=== PATIENT | female | born 1980 | race Caucasian/White ===

== ENCOUNTER → 2020-03-23 14:36 | Outpatient (CLI) | payer OTHER, SELFPAY ==
--- NOTE | 2020-03-23 14:38 | DI.RAD.S_ITS ---
PROCEDURE: XR LUMBAR SPINE MIN 4V INDICATIONS: low back pain TECHNIQUE: 5 views of the lumbar spine were acquired. COMPARISON: Outside Facility, RG, XR L-SPINE 2-3V, 01/04/2018, 9:07. [facility], MR, MR LUMBAR SPINE WITHOUT CONTRAST, 01/11/2019, 14:03. FINDINGS: Bones: 5 nonrib-bearing vertebrae are present. Very subtle scoliosis. No vertebral body compression fractures. No suspicious bony lesions. Minimal narrowing of the L5-S1 neural foramen, unchanged compared to 2018. Soft tissues: Overlying bowel gas pattern is normal. No suspicious soft tissue calcifications. IUD in the pelvis. Oblique images: No pars defects. IMPRESSION: Minimal narrowing of the L5-S1 neural foramen, unchanged. Dictated by: Sanket Lozoya M.D. on 03/23/2020 at 16:10 Approved by: Sanket Lozoya M.D. on 03/23/2020 at 16:13
== END ==
PROVIDERS: PCP Family Medicine; Referring Provider Family Medicine; Visit Provider Physical Medicine & Rehabilitation
DX: M47.817 Spondylosis without myelopathy or radiculopathy, lumbosacral region (principal); M53.3 Sacrococcygeal disorders, not elsewhere classified
CPT/HCPCS: 72110